=== PATIENT | female | born 1950 | race African-American/Black ===

== ENCOUNTER 2021-09-06 19:35 | Observation (INO) | payer MEDICARE ==
[2021-09-06] MEDS ORDERED: Ondansetron PF 4 MG/2 ML Vial ONE (20:53)
[2021-09-06 21:12] LABS: #Eosinphils 0.1 10x3/uL (0.0-0.5); #Monocytes 0.5 10x3/uL (0.0-1.1); #Neutrophils 2.3 10x3/uL (1.5-8.4); %Basophils 0.7 % (0.0-2.0); %Eosinophils 1.8 % (0.0-6.0); %Lymphocytes 34.4 % (18.0-47.0); %Monocytes 11.8 % (0.0-10.0); %Neutrophils 51.1 % (40.0-75.0); Hemoglobin 9.6 g/dL (12.0-15.5); Mean Corpuscular HGB CONC 32.3 g/dL (32.0-36.0); Mean Corpuscular Hemoglobin 30.6 pg (27.0-33.0); Mean Corpuscular Volume 94.6 fl (81.6-98.3); Mean Platelet Volume 11.1 fl (7.4-10.4); Platelet Count 167 10x3/uL (150-450); RBC Distribution Width 13.6 % (11.5-14.5); Red Blood Cell (RBC) Count 3.14 10x6/uL (3.90-5.03); White Blood Cell (WBC) Count 4.5 10x3/uL (3.5-10.5)
[2021-09-06 21:26] LABS: ALT (SGPT) 11 U/L (8-55); AST (SGOT) 18 U/L (5-34); Alkaline Phosphatase 55 U/L (40-110); Anion Gap 13 mmol/L (10-20); BUN (Urea Nitrogen) 29 mg/dL (9.8-20.1); Bilirubin, Total 0.5 mg/dL (0.2-1.2); Calc. Creatinine Clearance 0 mL/min (70-130); Calcium 9.5 mg/dL (7.8-10.44); Carbon Dioxide 28 mmol/L (23-31); Chloride 102 mmol/L (98-107); Globulin 2.9 g/dL (2.4-3.5); Glucose 99 mg/dL (83-110); Lipase 36 U/L (8-78); Potassium 3.9 mmol/L (3.5-5.1); Protein, Total 6.9 g/dL (5.8-8.1); Sodium 139 mmol/L (136-145)
[2021-09-06 21:27] LABS: Bilirubin Neg (Negative); Blood, Urine Negative (Negative); Clarity Clear (Clear); Glucose, Urine (Dipstick) Normal (Negative); Ketone, Urine Negative (Negative); Leukocyte Negative (Negative); Nitrite Negative (Negative); Protein, Urine (Dipstick) Negative (Neg-Trace); Specific Gravity, Urine 1.005 (1.002-1.036); Urobilinogen Normal mg/dL (Less than 2)
[2021-09-06 21:57] LABS: SARS-CoV-2 NAA Rapid Test Not Detected (NotDetected)
[2021-09-07] MEDS ORDERED: Dextrose 5% in Water 1,000 ML IV PRN (02:08)
[2021-09-07] MEDS ORDERED: HumaLOG 300 UNITS/3 ML VIAL SC PRN (02:08)
[2021-09-07] MEDS ORDERED: Dextrose 50% Abboject 50 ML SYRINGE SLOW IVP PRN (02:08)
[2021-09-07 02:13] VITALS: BMI 23.8
[2021-09-07] MEDS: 1/2 NS w/KCL 20 mEq 1,000 ML IV SCH ×2 (02:33→18:48)
[2021-09-07 04:15] LABS: #Eosinphils 0.1 10x3/uL (0.0-0.5); #Monocytes 0.6 10x3/uL (0.0-1.1); #Neutrophils 2.3 10x3/uL (1.5-8.4); %Basophils 0.7 % (0.0-2.0); %Lymphocytes 34.2 % (18.0-47.0); %Monocytes 12.3 % (0.0-10.0); %Neutrophils 50.6 % (40.0-75.0); Hemoglobin 9.3 g/dL (12.0-15.5); Mean Corpuscular Hemoglobin 30.4 pg (27.0-33.0); Mean Corpuscular Volume 95.1 fl (81.6-98.3); Mean Platelet Volume 10.9 fl (7.4-10.4); Platelet Count 161 10x3/uL (150-450); RBC Distribution Width 13.5 % (11.5-14.5); Red Blood Cell (RBC) Count 3.06 10x6/uL (3.90-5.03); White Blood Cell (WBC) Count 4.6 10x3/uL (3.5-10.5)
[2021-09-07 04:19] LABS: Anion Gap 13 mmol/L (10-20); BUN (Urea Nitrogen) 27 mg/dL (9.8-20.1); Calc. Creatinine Clearance 38 mL/min (70-130); Calcium 9.4 mg/dL (7.8-10.44); Carbon Dioxide 29 mmol/L (23-31); Chloride 103 mmol/L (98-107); Glucose 124 mg/dL (83-110); Magnesium 1.7 mg/dL (1.6-2.6); Potassium 4.1 mmol/L (3.5-5.1); Sodium 141 mmol/L (136-145)
[2021-09-07 04:21] LABS: Troponin I Less than 0.010 ng/mL (< 0.028)
[2021-09-07 04:35] LABS: Thyroid Stimulating Hormone 1.9554 uIU/mL (0.35-4.94)
[2021-09-07] MEDS: Enoxaparin Sodium 40 MG/0.4 ML SYRINGE SC SCH (09:53)
[2021-09-07] MEDS: Cyanocobalamin 1000 MCG/ML VIAL IM SCH (09:53)
[2021-09-07] MEDS ORDERED: Fleet Enema 133 ML BOT PR SCH (16:00)
[2021-09-07] MEDS ORDERED: Magnesium Citrate 300 ML BOT PO SCH (17:30)
[2021-09-07 17:56] LABS: Mean Corpuscular HGB CONC 32.1 g/dL (32.0-36.0); Mean Corpuscular Hemoglobin 30.4 pg (27.0-33.0); Mean Corpuscular Volume 94.8 fl (81.6-98.3); Mean Platelet Volume 10.7 fl (7.4-10.4); Platelet Count 162 10x3/uL (150-450); RBC Distribution Width 13.5 % (11.5-14.5); Red Blood Cell (RBC) Count 3.29 10x6/uL (3.90-5.03)
[2021-09-07] MEDS ORDERED: hydrALAZINE 20 MG/ML VIAL SLOW IVP SCH (21:15)
[2021-09-08] MEDS ORDERED: Ondansetron PF 4 MG/2 ML Vial IVP PRN (02:35)
[2021-09-08] MEDS ORDERED: cloNIDine 0.1 MG TAB PO SCH (03:00)
[2021-09-08] MEDS: 1/2 NS w/KCL 20 mEq 1,000 ML IV SCH (05:13)
[2021-09-08 06:21] LABS: Anion Gap 13 mmol/L (10-20); BUN (Urea Nitrogen) 19 mg/dL (9.8-20.1); Calc. Creatinine Clearance 46 mL/min (70-130); Carbon Dioxide 29 mmol/L (23-31); Chloride 105 mmol/L (98-107); Glucose 118 mg/dL (83-110); Magnesium 1.7 mg/dL (1.6-2.6); Potassium 3.7 mmol/L (3.5-5.1); Sodium 143 mmol/L (136-145)
[2021-09-08] MEDS ORDERED: Metamucil PACK PO SCH (09:00)
[2021-09-08] MEDS ORDERED: Polyethylene Glycol 3350 17 GM Packet PO SCH (09:00)
[2021-09-08] MEDS ORDERED: Pantoprazole 40 MG VIAL IVP SCH (09:00)
[2021-09-08] MEDS: Enoxaparin Sodium 40 MG/0.4 ML SYRINGE SC SCH (09:15)
[2021-09-08] MEDS: Cyanocobalamin 1000 MCG/ML VIAL IM SCH (09:15)
[2021-09-08] MEDS ORDERED: Acetaminophen 325 MG TAB PO PRN (12:35)
[2021-09-08 17:25] VITALS: BP 156/70; TEMP 99.3
== END 2021-09-08 18:37 | disposition home or self-care (01) ==
LOC: CSHERS 19:35 → CSHTELE 09-07 02:01
PROVIDERS: ADMIT Family Medicine; ATTEND Physician Assistant Medical
DX: R53.1 Weakness (principal); E53.8 Deficiency of other specified B group vitamins; E11.22 Type 2 diabetes mellitus with diabetic chronic kidney disease; I12.9 Hypertensive chronic kidney disease with stage 1 through stage 4 chronic kidney disease, or unspecified chronic kidney disease; N18.32 Chronic kidney disease, stage 3b; R09.02 Hypoxemia; I51.7 Cardiomegaly; Z79.4 Long term (current) use of insulin; Z79.899 Other long term (current) drug therapy; Z79.82 Long term (current) use of aspirin; Z20.822 Contact with and (suspected) exposure to COVID-19
CPT/HCPCS: 0240U; 71045; 74177; 80048 ×2; 80053; 81003; 82607; 82728; 82746; 82962 ×2; 83605; 83690; 83735 ×2; 83880; 84443; 84484 ×2; 85025 ×2; 85027; 85379; 93005 ×2; 93306; 94760 ×2; 96372 ×2; 96374; 96375 ×2; 96376; 99285; G0378 ×2; 36415; 36416; 93010; C9113; J0360; J1650; J2405; J3420; J3480

== ENCOUNTER 2021-09-20 13:09 | Inpatient (IN) | payer MEDICARE ==
[2021-09-20 15:31] VITALS: BMI 26.1
[2021-09-20] MEDS ORDERED: Ondansetron PF 4 MG/2 ML Vial IVP PRN (16:47)
[2021-09-20] MEDS ORDERED: Dextrose 5% in Water 1,000 ML IV PRN (16:47)
[2021-09-20] MEDS ORDERED: Dextrose 50% Abboject 50 ML SYRINGE SLOW IVP PRN (16:47)
[2021-09-20] MEDS ORDERED: Furosemide 20 MG/2 ML VIAL SLOW IVP SCH (17:00)
[2021-09-20] MEDS ORDERED: FLU VACC QS2021-22(65YR UP)/PF 240 MCG/0.7 ML SYRINGE IM ONE (18:15)
[2021-09-20] MEDS: metFORMIN 500 MG TAB PO SCH (18:45)
[2021-09-20] MEDS: Acetaminophen 325 MG TAB PO PRN ×2 (18:45→22:38)
[2021-09-20] MEDS: hydrALAZINE 20 MG/ML VIAL SLOW IVP PRN (18:45)
[2021-09-20] MEDS: Cefepime 1 GM in Sodium Chloride 0.9% 100 ML IVPB SCH (20:58)
[2021-09-20] MEDS: Metoprolol Tartrate 50 MG TAB PO SCH (20:59)
[2021-09-20] MEDS: Simvastatin 10 MG TAB PO SCH (20:59)
[2021-09-20] MEDS: Gabapentin 100 MG CAP PO SCH (20:59)
[2021-09-20] MEDS: Sucralfate 1 GM TAB PO SCH (21:00)
[2021-09-20] MEDS: hydrALAZINE 25 MG TAB PO SCH (21:00)
[2021-09-20] MEDS: Oxybutynin ER 5 MG TAB PO SCH (21:00)
[2021-09-20] MEDS: HumaLOG 300 UNITS/3 ML VIAL SC PRN (21:01)
[2021-09-21] MEDS ORDERED: Vancomycin HCl 500 MG in Sodium Chloride 0.9% 100 ML IVPB SCH (04:00)
[2021-09-21 04:43] LABS: #Eosinphils 0.1 10x3/uL (0.0-0.5); #Monocytes 0.7 10x3/uL (0.0-1.1); #Neutrophils 3.6 10x3/uL (1.5-8.4); %Basophils 0.7 % (0.0-2.0); %Eosinophils 1.6 % (0.0-6.0); %Lymphocytes 18.9 % (18.0-47.0); %Monocytes 13.3 % (0.0-10.0); %Neutrophils 65.1 % (40.0-75.0); Hemoglobin 8.9 g/dL (12.0-15.5); Mean Corpuscular HGB CONC 30.6 g/dL (32.0-36.0); Mean Platelet Volume 11.2 fl (7.4-10.4); Platelet Count 196 10x3/uL (150-450); Red Blood Cell (RBC) Count 2.97 10x6/uL (3.90-5.03); White Blood Cell (WBC) Count 5.6 10x3/uL (3.5-10.5)
[2021-09-21 05:00] LABS: Anion Gap 12 mmol/L (10-20); BUN (Urea Nitrogen) 29 mg/dL (9.8-20.1); Calc. Creatinine Clearance 44 mL/min (70-130); Calcium 9.4 mg/dL (7.8-10.44); Carbon Dioxide 30 mmol/L (23-31); Chloride 104 mmol/L (98-107); Glucose 72 mg/dL (83-110); Sodium 142 mmol/L (136-145)
[2021-09-21] MEDS: Furosemide 40 MG/4 ML VIAL SLOW IVP SCH ×2 (05:15→14:59)
[2021-09-21] MEDS: Acetaminophen 325 MG TAB PO PRN (05:15)
[2021-09-21] MEDS: Latanoprost 0.005% Ophth Soln 2.5 ml Bottle EA EYE SCH (10:00)
[2021-09-21] MEDS ORDERED: Cefepime 1 GM VIAL ONE (10:12)
[2021-09-21] MEDS: Sucralfate 1 GM TAB PO SCH ×2 (10:21→20:20)
[2021-09-21] MEDS: Metoprolol Tartrate 50 MG TAB PO SCH ×2 (10:21→20:20)
[2021-09-21] MEDS: hydrALAZINE 25 MG TAB PO SCH ×4 (10:22→20:59)
[2021-09-21] MEDS: Gabapentin 100 MG CAP PO SCH (10:23)
[2021-09-21] MEDS: metFORMIN 500 MG TAB PO SCH ×3 (10:23→19:43)
[2021-09-21] MEDS: Cyanocobalamin (Vitamin B-12) 1,000 MCG TAB PO SCH (10:23)
[2021-09-21] MEDS: Pioglitazone HCl 15 MG TAB PO SCH (10:23)
[2021-09-21] MEDS: Aspirin Chewable 81 MG TAB PO SCH (10:24)
[2021-09-21] MEDS: Amlodipine 10 MG TAB PO SCH (10:24)
[2021-09-21] MEDS: Cefepime 1 GM in Sodium Chloride 0.9% 100 ML IVPB SCH ×2 (10:24→20:58)
[2021-09-21] MEDS: Valsartan 80 MG TAB PO SCH (10:27)
[2021-09-21] MEDS: Glimepiride 2 MG TAB PO SCH (10:27)
[2021-09-21 16:02] LABS: Base Excess (BEa) 7.7 mEq/L (-2.0 to +3.0); CO2 Tension 58.4 mmHg (35.0-45.0); Calcium, Ionized (arterial) 1.21 mmol/L (1.12-1.30); Carboxyhemoglobin (COHb) 0.2 gm% (0.0-3.0); Hemoglobin (Hb) 9.5 g/dL (12.0-16.0); O2 Tension (PaO2), arterial 65.1 mmHg (> 70.0); Potassium - ABG Lab 3.8 mmol/L (3.70-5.30); Puncture Site RRA; pH, Arterial 7.38 (7.35-7.45)
[2021-09-21 16:03] LABS: Syphilis Antibody Nonreactive (Nonreactive); Syphilis Antibody Index 0.45 S/CO (<1.00 Non-Reactive)
[2021-09-21] MEDS ORDERED: methylPREDNISolone Sod Succ/PF 125 MG in Sodium Chloride 0.9% 250 ML 250 ML IVPB SCH (16:30)
[2021-09-21] MEDS ORDERED: methylPREDNISolone Sod Succ/PF 125 MG/2 ML VIAL IVP SCH (17:00)
[2021-09-21 17:23] LABS: Actual Bicarbonate (HCO3a) 32.5 mEq/L (22-28); Base Excess (BEa) 6.4 mEq/L (-2.0 to +3.0); Calcium, Ionized (arterial) 1.21 mmol/L (1.12-1.30); Carboxyhemoglobin (COHb) 0.3 gm% (0.0-3.0); Hemoglobin (Hb) 9.4 g/dL (12.0-16.0); O2 Tension (PaO2), arterial 71.3 mmHg (> 70.0); Potassium - ABG Lab 3.7 mmol/L (3.70-5.30); Puncture Site RRA; pH, Arterial 7.38 (7.35-7.45)
[2021-09-21] MEDS ORDERED: Lorazepam 2 MG/ML VIAL ONE (19:22)
[2021-09-21] MEDS ORDERED: Sterile Water 10 ML ONE (19:58)
[2021-09-21] MEDS ORDERED: Ziprasidone 20 MG VIAL IM SCH (20:00)
[2021-09-21] MEDS ORDERED: Lorazepam 2 MG/ML VIAL SLOW IVP SCH (20:00)
[2021-09-21] MEDS: Budesonide 0.5 MG/2 ML NEB NEB SCH (20:10)
[2021-09-21] MEDS: Simvastatin 10 MG TAB PO SCH (20:20)
[2021-09-21] MEDS: Oxybutynin ER 5 MG TAB PO SCH (20:20)
[2021-09-21] MEDS ORDERED: Sodium Chloride 0.9% 500 ML IVPB SCH (21:00)
[2021-09-21] MEDS ORDERED: Norepinephrine 8 MG/0.9% NS 250 ML IVPB SCH (21:30)
[2021-09-21] MEDS: Vancomycin HCl 500 MG in Sodium Chloride 0.9% 100 ML IVPB SCH (21:44)
[2021-09-22] MEDS ORDERED: Lorazepam 2 MG/ML VIAL SLOW IVP SCH (04:00)
[2021-09-22] MEDS ORDERED: methylPREDNISolone Sod Succ 40 MG VIAL IVP SCH ×2 (06:00→09:00)
[2021-09-22] MEDS: Furosemide 40 MG/4 ML VIAL SLOW IVP SCH (07:33)
[2021-09-22] MEDS: hydrALAZINE 20 MG/ML VIAL SLOW IVP PRN ×2 (07:33→16:14)
[2021-09-22] MEDS: metFORMIN 500 MG TAB PO SCH ×2 (08:41→16:12)
[2021-09-22] MEDS: Aspirin Chewable 81 MG TAB PO SCH (08:41)
[2021-09-22] MEDS: Glimepiride 2 MG TAB PO SCH (08:41)
[2021-09-22] MEDS: Amlodipine 10 MG TAB PO SCH (08:41)
[2021-09-22] MEDS: Cyanocobalamin (Vitamin B-12) 1,000 MCG TAB PO SCH (08:44)
[2021-09-22] MEDS: hydrALAZINE 25 MG TAB PO SCH ×3 (08:44→21:47)
[2021-09-22 08:45] LABS: Legionella Urinary Ag Negative (Negative); Strep pneumo Urine Ag NEGATIVE (NEGATIVE)
[2021-09-22] MEDS: Sucralfate 1 GM TAB PO SCH ×2 (08:45→21:48)
[2021-09-22] MEDS: Valsartan 80 MG TAB PO SCH (08:45)
[2021-09-22] MEDS: Metoprolol Tartrate 50 MG TAB PO SCH ×2 (08:45→21:47)
[2021-09-22] MEDS: Pioglitazone HCl 15 MG TAB PO SCH (08:45)
[2021-09-22] MEDS: HumaLOG 300 UNITS/3 ML VIAL SC PRN (09:22)
[2021-09-22] MEDS: Budesonide 0.5 MG/2 ML NEB NEB SCH ×2 (09:25→19:35)
[2021-09-22 09:48] LABS: #Monocytes 0.7 10x3/uL (0.0-1.1); #Neutrophils 6.1 10x3/uL (1.5-8.4); %Basophils 0.3 % (0.0-2.0); %Lymphocytes 11.9 % (18.0-47.0); %Neutrophils 78.2 % (40.0-75.0); Hemoglobin 10.2 g/dL (12.0-15.5); Mean Corpuscular Hemoglobin 29.8 pg (27.0-33.0); Mean Corpuscular Volume 96.2 fl (81.6-98.3); Mean Platelet Volume 10.6 fl (7.4-10.4); Platelet Count 232 10x3/uL (150-450); Red Blood Cell (RBC) Count 3.42 10x6/uL (3.90-5.03); White Blood Cell (WBC) Count 7.8 10x3/uL (3.5-10.5)
[2021-09-22 09:57] LABS: Phosphorus 4.7 mg/dL (2.3-4.7)
[2021-09-22] MEDS ORDERED: Labetalol HCl 100 MG/20 ML VIAL SLOW IVP PRN (10:01)
[2021-09-22 10:02] LABS: ALT (SGPT) 27 U/L (8-55); AST (SGOT) 20 U/L (5-34); Alkaline Phosphatase 59 U/L (40-110); Anion Gap 17 mmol/L (10-20); BUN (Urea Nitrogen) 35 mg/dL (9.8-20.1); Bilirubin, Total 0.8 mg/dL (0.2-1.2); Calc. Creatinine Clearance 39 mL/min (70-130); Calcium 9.9 mg/dL (7.8-10.44); Carbon Dioxide 28 mmol/L (23-31); Chloride 100 mmol/L (98-107); Globulin 3.7 g/dL (2.4-3.5); Glucose 250 mg/dL (83-110); Magnesium 1.4 mg/dL (1.6-2.6); Potassium 3.9 mmol/L (3.5-5.1); Protein, Total 7.7 g/dL (5.8-8.1); Sodium 141 mmol/L (136-145)
[2021-09-22] MEDS ORDERED: Pantoprazole 40 MG VIAL IVP SCH (11:00)
[2021-09-22 11:07] LABS: Actual Bicarbonate (HCO3v) 30 mEq/L (22-28); Base Excess 3.8 mEq/L (-2.0 to +3.0); Calcium, Ionized (venous) 1.15 mmol/L (1.16-1.32); Chloride (VBG) 98 mmol/L (98-106); Hemoglobin (Hb) 11.2 g/dL (11.7-16.1); Potassium (VBG) 3.82 mmol/L (3.70-5.30); Puncture Site Other Site; Sodium 139.8 mmol/L (133-146)
[2021-09-22] MEDS: Cefepime 1 GM in Sodium Chloride 0.9% 100 ML IVPB SCH ×2 (12:44→21:24)
[2021-09-22] MEDS: Magnesium 2 GM/50 ML 2 GM in Premix Bag 1 BAG IVPB SCH ×2 (12:45→14:09)
[2021-09-22 14:09] LABS: Actual Bicarbonate (HCO3v) 35 mEq/L (22-28); Base Excess 8.6 mEq/L (-2.0 to +3.0); Calcium, Ionized (venous) 1.17 mmol/L (1.16-1.32); Chloride (VBG) 100 mmol/L (98-106); Hemoglobin (Hb) 10.3 g/dL (11.7-16.1); Potassium (VBG) 3.55 mmol/L (3.70-5.30); Puncture Site Other Site; Sodium 140.7 mmol/L (133-146)
[2021-09-22] MEDS: Latanoprost 0.005% Ophth Soln 2.5 ml Bottle EA EYE SCH (14:24)
[2021-09-22] MEDS: Dextrose 10% in Water 1,000 ML IV SCH (15:37)
[2021-09-22] MEDS: Vancomycin HCl 500 MG in Sodium Chloride 0.9% 100 ML IVPB SCH (16:15)
[2021-09-22] MEDS ORDERED: HYDROmorphone 0.5 MG/0.5 ML SYRINGE SLOW IVP SCH (17:30)
[2021-09-22] MEDS ORDERED: Ziprasidone 20 MG VIAL IM SCH (20:15)
[2021-09-22] MEDS ORDERED: Sterile Water 10 ML ONE (20:36)
[2021-09-22] MEDS: Enoxaparin Sodium 40 MG/0.4 ML SYRINGE SC SCH (21:24)
[2021-09-22] MEDS: Simvastatin 10 MG TAB PO SCH (21:48)
[2021-09-22] MEDS: Oxybutynin ER 5 MG TAB PO SCH (21:48)
[2021-09-23] MEDS ORDERED: Lorazepam 2 MG/ML VIAL SLOW IVP SCH (02:15)
[2021-09-23 04:18] LABS: #Eosinphils 0.1 10x3/uL (0.0-0.5); #Monocytes 0.9 10x3/uL (0.0-1.1); #Neutrophils 5.7 10x3/uL (1.5-8.4); %Basophils 0.4 % (0.0-2.0); %Eosinophils 0.8 % (0.0-6.0); %Lymphocytes 11.8 % (18.0-47.0); %Monocytes 11.8 % (0.0-10.0); %Neutrophils 74.9 % (40.0-75.0); Hemoglobin 9.1 g/dL (12.0-15.5); Mean Corpuscular HGB CONC 31.6 g/dL (32.0-36.0); Mean Corpuscular Hemoglobin 30.2 pg (27.0-33.0); Mean Corpuscular Volume 95.7 fl (81.6-98.3); Mean Platelet Volume 10.8 fl (7.4-10.4); Platelet Count 197 10x3/uL (150-450); RBC Distribution Width 14.1 % (11.5-14.5); Red Blood Cell (RBC) Count 3.01 10x6/uL (3.90-5.03); White Blood Cell (WBC) Count 7.6 10x3/uL (3.5-10.5)
[2021-09-23 04:29] LABS: ALT (SGPT) 23 U/L (8-55); AST (SGOT) 24 U/L (5-34); Albumin 3.8 g/dL (3.4-4.8); Alkaline Phosphatase 52 U/L (40-110); Anion Gap 18 mmol/L (10-20); BUN (Urea Nitrogen) 32 mg/dL (9.8-20.1); Bilirubin, Total 0.8 mg/dL (0.2-1.2); Calc. Creatinine Clearance 44 mL/min (70-130); Calcium 9.6 mg/dL (7.8-10.44); Carbon Dioxide 28 mmol/L (23-31); Chloride 99 mmol/L (98-107); Globulin 3.5 g/dL (2.4-3.5); Glucose 239 mg/dL (83-110); Magnesium 2.1 mg/dL (1.6-2.6); Phosphorus 3.5 mg/dL (2.3-4.7); Potassium 3.6 mmol/L (3.5-5.1); Protein, Total 7.3 g/dL (5.8-8.1); Sodium 141 mmol/L (136-145)
[2021-09-23] MEDS: Acetaminophen 325 MG TAB PO PRN (04:45)
[2021-09-23] MEDS: HumaLOG 300 UNITS/3 ML VIAL SC PRN ×2 (04:52→20:58)
[2021-09-23] MEDS: Dextrose 10% in Water 1,000 ML IV SCH ×3 (05:36→19:39)
[2021-09-23] MEDS ORDERED: Dextrose 30 ML TUBE PO SCH (08:15)
[2021-09-23] MEDS: Budesonide 0.5 MG/2 ML NEB NEB SCH (08:44)
[2021-09-23 09:32] LABS: Vancomycin, Trough 13.8 ug/mL
[2021-09-23] MEDS: Aspirin Chewable 81 MG TAB PO SCH (10:27)
[2021-09-23] MEDS: hydrALAZINE 25 MG TAB PO SCH ×3 (10:27→19:32)
[2021-09-23] MEDS: Cyanocobalamin (Vitamin B-12) 1,000 MCG TAB PO SCH (10:28)
[2021-09-23] MEDS: Amlodipine 10 MG TAB PO SCH (10:28)
[2021-09-23] MEDS: Sucralfate 1 GM TAB PO SCH ×2 (10:28→19:33)
[2021-09-23] MEDS: Metoprolol Tartrate 50 MG TAB PO SCH ×2 (10:28→19:32)
[2021-09-23] MEDS: Valsartan 80 MG TAB PO SCH (10:46)
[2021-09-23] MEDS: Latanoprost 0.005% Ophth Soln 2.5 ml Bottle EA EYE SCH (10:47)
[2021-09-23] MEDS: Vancomycin HCl 500 MG in Sodium Chloride 0.9% 100 ML IVPB SCH (15:33)
[2021-09-23] MEDS: Pantoprazole 40 MG VIAL IVP SCH (15:33)
[2021-09-23] MEDS: Cefepime 1 GM in Sodium Chloride 0.9% 100 ML IVPB SCH ×2 (15:34→19:31)
[2021-09-23] MEDS: Bisacodyl 5 MG TAB PO PRN (17:34)
[2021-09-23] MEDS: Pioglitazone HCl 15 MG TAB PO SCH (19:16)
[2021-09-23] MEDS: Glimepiride 2 MG TAB PO SCH (19:16)
[2021-09-23] MEDS: metFORMIN 500 MG TAB PO SCH (19:16)
[2021-09-23] MEDS ORDERED: Dextrose 50% Abboject 50 ML SYRINGE SLOW IVP PRN (19:17)
[2021-09-23] MEDS ORDERED: Dextrose 5% in Water 1,000 ML IV PRN (19:17)
[2021-09-23] MEDS: Enoxaparin Sodium 40 MG/0.4 ML SYRINGE SC SCH (19:32)
[2021-09-23] MEDS: Simvastatin 10 MG TAB PO SCH (19:43)
[2021-09-23] MEDS: Oxybutynin ER 5 MG TAB PO SCH (19:43)
[2021-09-24] MEDS ORDERED: Melatonin 3 MG TAB PO SCH (00:15)
[2021-09-24 03:37] LABS: #Eosinphils 0.2 10x3/uL (0.0-0.5); #Monocytes 0.7 10x3/uL (0.0-1.1); #Neutrophils 3.8 10x3/uL (1.5-8.4); %Basophils 0.7 % (0.0-2.0); %Eosinophils 3.1 % (0.0-6.0); %Lymphocytes 16.8 % (18.0-47.0); %Monocytes 12.9 % (0.0-10.0); %Neutrophils 66.2 % (40.0-75.0); Mean Corpuscular Hemoglobin 30.2 pg (27.0-33.0); Mean Corpuscular Volume 97.4 fl (81.6-98.3); Platelet Count 185 10x3/uL (150-450); RBC Distribution Width 13.9 % (11.5-14.5); Red Blood Cell (RBC) Count 2.65 10x6/uL (3.90-5.03); White Blood Cell (WBC) Count 5.7 10x3/uL (3.5-10.5)
[2021-09-24 03:58] LABS: ALT (SGPT) 21 U/L (8-55); AST (SGOT) 28 U/L (5-34); Albumin 3.4 g/dL (3.4-4.8); Alkaline Phosphatase 46 U/L (40-110); Anion Gap 14 mmol/L (10-20); BUN (Urea Nitrogen) 27 mg/dL (9.8-20.1); Bilirubin, Total 0.8 mg/dL (0.2-1.2); Calc. Creatinine Clearance 54 mL/min (70-130); Carbon Dioxide 29 mmol/L (23-31); Chloride 98 mmol/L (98-107); Glucose 138 mg/dL (83-110); Magnesium 1.8 mg/dL (1.6-2.6); Phosphorus 2.9 mg/dL (2.3-4.7); Potassium 3.3 mmol/L (3.5-5.1); Protein, Total 6.4 g/dL (5.8-8.1); Sodium 138 mmol/L (136-145)
[2021-09-24] MEDS: Dextrose 10% in Water 1,000 ML IV SCH (04:43)
[2021-09-24] MEDS ORDERED: Potassium Chloride 20 MEQ TAB PO SCH (08:00)
[2021-09-24] MEDS: Amlodipine 10 MG TAB PO SCH (08:04)
[2021-09-24] MEDS: Aspirin Chewable 81 MG TAB PO SCH (08:05)
[2021-09-24] MEDS: Cefepime 1 GM in Sodium Chloride 0.9% 100 ML IVPB SCH ×2 (08:06→22:00)
[2021-09-24] MEDS: Cyanocobalamin (Vitamin B-12) 1,000 MCG TAB PO SCH (08:07)
[2021-09-24] MEDS: Metoprolol Tartrate 50 MG TAB PO SCH ×2 (08:09→09:55)
[2021-09-24] MEDS: Sucralfate 1 GM TAB PO SCH ×2 (08:10→22:02)
[2021-09-24] MEDS: Pantoprazole 40 MG VIAL IVP SCH (08:10)
[2021-09-24] MEDS: hydrALAZINE 25 MG TAB PO SCH ×3 (08:34→22:03)
[2021-09-24] MEDS: Valsartan 80 MG TAB PO SCH (08:35)
[2021-09-24] MEDS: Latanoprost 0.005% Ophth Soln 2.5 ml Bottle EA EYE SCH (08:44)
[2021-09-24] MEDS: Vancomycin HCl 500 MG in Sodium Chloride 0.9% 100 ML IVPB SCH (08:46)
[2021-09-24] MEDS: HumaLOG 300 UNITS/3 ML VIAL SC PRN ×3 (08:48→22:04)
[2021-09-24] MEDS: Bisacodyl 5 MG TAB PO PRN (10:14)
[2021-09-24] MEDS: Simvastatin 10 MG TAB PO SCH (22:00)
[2021-09-24] MEDS: Enoxaparin Sodium 40 MG/0.4 ML SYRINGE SC SCH (22:01)
[2021-09-24] MEDS: Oxybutynin ER 5 MG TAB PO SCH (22:02)
[2021-09-24 23:37] LABS: Mycoplasma pneumoniae IgG AB 671 U/mL (0-99); Mycoplasma pneumoniae IgM AB Less than 770 U/mL (0-769)
[2021-09-25] MEDS: Vancomycin HCl 500 MG in Sodium Chloride 0.9% 100 ML IVPB SCH ×2 (03:44→21:54)
[2021-09-25 05:22] LABS: #Eosinphils 0.2 10x3/uL (0.0-0.5); #Monocytes 0.6 10x3/uL (0.0-1.1); #Neutrophils 2.2 10x3/uL (1.5-8.4); %Basophils 0.7 % (0.0-2.0); %Eosinophils 3.7 % (0.0-6.0); %Lymphocytes 25.9 % (18.0-47.0); %Monocytes 14.8 % (0.0-10.0); %Neutrophils 54.7 % (40.0-75.0); Hemoglobin 8.6 g/dL (12.0-15.5); Mean Corpuscular HGB CONC 31.4 g/dL (32.0-36.0); Mean Corpuscular Volume 95.5 fl (81.6-98.3); Mean Platelet Volume 11.3 fl (7.4-10.4); Platelet Count 196 10x3/uL (150-450); RBC Distribution Width 13.8 % (11.5-14.5); Red Blood Cell (RBC) Count 2.87 10x6/uL (3.90-5.03); White Blood Cell (WBC) Count 4.1 10x3/uL (3.5-10.5)
[2021-09-25 05:28] LABS: ALT (SGPT) 21 U/L (8-55); AST (SGOT) 27 U/L (5-34); Albumin 3.3 g/dL (3.4-4.8); Alkaline Phosphatase 44 U/L (40-110); Anion Gap 11 mmol/L (10-20); BUN (Urea Nitrogen) 23 mg/dL (9.8-20.1); Bilirubin, Total 0.8 mg/dL (0.2-1.2); Calc. Creatinine Clearance 49 mL/min (70-130); Calcium 9.1 mg/dL (7.8-10.44); Carbon Dioxide 30 mmol/L (23-31); Chloride 99 mmol/L (98-107); Globulin 2.9 g/dL (2.4-3.5); Glucose 180 mg/dL (83-110); Magnesium 1.8 mg/dL (1.6-2.6); Phosphorus 2.7 mg/dL (2.3-4.7); Potassium 3.8 mmol/L (3.5-5.1); Protein, Total 6.2 g/dL (5.8-8.1); Sodium 136 mmol/L (136-145)
[2021-09-25] MEDS: Sucralfate 1 GM TAB PO SCH ×2 (09:32→21:05)
[2021-09-25] MEDS: Cyanocobalamin (Vitamin B-12) 1,000 MCG TAB PO SCH (09:32)
[2021-09-25] MEDS: Metoprolol Tartrate 50 MG TAB PO SCH ×2 (09:32→21:04)
[2021-09-25] MEDS: Amlodipine 10 MG TAB PO SCH (09:33)
[2021-09-25] MEDS: Valsartan 80 MG TAB PO SCH (09:33)
[2021-09-25] MEDS: Aspirin Chewable 81 MG TAB PO SCH (09:33)
[2021-09-25] MEDS: Latanoprost 0.005% Ophth Soln 2.5 ml Bottle EA EYE SCH (09:33)
[2021-09-25] MEDS: hydrALAZINE 25 MG TAB PO SCH ×3 (09:33→21:04)
[2021-09-25] MEDS: Pantoprazole 40 MG VIAL IVP SCH (09:33)
[2021-09-25] MEDS: Cefepime 1 GM in Sodium Chloride 0.9% 100 ML IVPB SCH ×2 (09:37→21:03)
[2021-09-25] MEDS ORDERED: hydrOXYzine 25 MG TAB PO PRN (10:32)
[2021-09-25] MEDS: hydrOXYzine 25 MG TAB PO SCH ×4 (12:15→21:05)
[2021-09-25] MEDS: HumaLOG 300 UNITS/3 ML VIAL SC PRN ×3 (13:03→21:16)
[2021-09-25] MEDS: Enoxaparin Sodium 40 MG/0.4 ML SYRINGE SC SCH (21:02)
[2021-09-25] MEDS: Simvastatin 10 MG TAB PO SCH (21:04)
[2021-09-25] MEDS: Acetaminophen 325 MG TAB PO PRN (21:05)
[2021-09-25] MEDS: Oxybutynin ER 5 MG TAB PO SCH (21:05)
[2021-09-25 21:30] LABS: Vancomycin, Trough 8.3 ug/mL
[2021-09-26] MEDS: Vancomycin HCl 500 MG in Sodium Chloride 0.9% 100 ML IVPB SCH ×3 (00:03→22:49)
[2021-09-26 05:31] LABS: #Eosinphils 0.2 10x3/uL (0.0-0.5); #Monocytes 0.7 10x3/uL (0.0-1.1); #Neutrophils 2.5 10x3/uL (1.5-8.4); %Basophils 0.8 % (0.0-2.0); %Eosinophils 3.3 % (0.0-6.0); %Lymphocytes 28.5 % (18.0-47.0); %Monocytes 14.2 % (0.0-10.0); Hemoglobin 8.8 g/dL (12.0-15.5); Mean Corpuscular HGB CONC 31.8 g/dL (32.0-36.0); Mean Corpuscular Hemoglobin 30.9 pg (27.0-33.0); Mean Corpuscular Volume 97.2 fl (81.6-98.3); Mean Platelet Volume 11.1 fl (7.4-10.4); Platelet Count 176 10x3/uL (150-450); RBC Distribution Width 13.6 % (11.5-14.5); Red Blood Cell (RBC) Count 2.85 10x6/uL (3.90-5.03); White Blood Cell (WBC) Count 4.8 10x3/uL (3.5-10.5)
[2021-09-26 05:38] LABS: ALT (SGPT) 18 U/L (8-55); AST (SGOT) 22 U/L (5-34); Albumin 3.3 g/dL (3.4-4.8); Alkaline Phosphatase 48 U/L (40-110); Anion Gap 15 mmol/L (10-20); BUN (Urea Nitrogen) 23 mg/dL (9.8-20.1); Bilirubin, Total 0.8 mg/dL (0.2-1.2); Calc. Creatinine Clearance 44 mL/min (70-130); Calcium 9.2 mg/dL (7.8-10.44); Carbon Dioxide 26 mmol/L (23-31); Chloride 102 mmol/L (98-107); Glucose 129 mg/dL (83-110); Magnesium 1.9 mg/dL (1.6-2.6); Phosphorus 3.1 mg/dL (2.3-4.7); Potassium 3.9 mmol/L (3.5-5.1); Protein, Total 6.3 g/dL (5.8-8.1); Sodium 139 mmol/L (136-145)
[2021-09-26] MEDS: hydrALAZINE 25 MG TAB PO SCH ×3 (08:30→21:33)
[2021-09-26] MEDS: Cyanocobalamin (Vitamin B-12) 1,000 MCG TAB PO SCH (08:30)
[2021-09-26] MEDS: Pantoprazole 40 MG VIAL IVP SCH (08:32)
[2021-09-26] MEDS: Cefepime 1 GM in Sodium Chloride 0.9% 100 ML IVPB SCH (08:32)
[2021-09-26] MEDS: Metoprolol Tartrate 50 MG TAB PO SCH ×2 (08:32→21:34)
[2021-09-26] MEDS: Aspirin Chewable 81 MG TAB PO SCH (08:32)
[2021-09-26] MEDS: Amlodipine 10 MG TAB PO SCH (08:32)
[2021-09-26] MEDS: hydrOXYzine 25 MG TAB PO SCH ×4 (08:32→21:34)
[2021-09-26] MEDS: Sucralfate 1 GM TAB PO SCH ×2 (08:37→21:34)
[2021-09-26] MEDS: Valsartan 80 MG TAB PO SCH (08:37)
[2021-09-26] MEDS: Latanoprost 0.005% Ophth Soln 2.5 ml Bottle EA EYE SCH (08:38)
[2021-09-26 12:06] LABS: HBSAg Index 0.28 S/CO (0-0.99); HIV (1/2) Antibody/Antigen Non-Reactive (NonReactive); Hep B Surf Ag Non-Reactive S/CO (NonReactive); Hep C IgG Ab Non-Reactive (NonReactive); Hep C Index 0.12 S/CO (0-0.79)
[2021-09-26 15:11] LABS: Bilirubin Neg (Negative); Blood, Urine Negative (Negative); Clarity Clear (Clear); Glucose, Urine (Dipstick) 100 mg/dL (Negative); Ketone, Urine Negative (Negative); Leukocyte Negative (Negative); Nitrite Negative (Negative); Protein, Urine (Dipstick) 15 mg/dl (Neg-Trace); Urobilinogen Normal mg/dL (Less than 2)
[2021-09-26 15:13] LABS: Urine Culture Reflex No No
[2021-09-26 15:18] LABS: Bacteria/HPF Rare-Few HPF (None Seen); RBC/HPF 0-3 HPF (0-3); Squamous Epithelial None Seen HPF (0-3); WBC/HPF 0-3 HPF (0-3)
[2021-09-26] MEDS: Oxybutynin ER 5 MG TAB PO SCH (21:34)
[2021-09-26] MEDS: Simvastatin 10 MG TAB PO SCH (21:34)
[2021-09-26] MEDS: Enoxaparin Sodium 40 MG/0.4 ML SYRINGE SC SCH (21:35)
[2021-09-26] MEDS: Cefepime 2 GM in Sodium Chloride 0.9% 100 ML IVPB SCH (21:35)
[2021-09-27 05:25] LABS: ALT (SGPT) 17 U/L (8-55); AST (SGOT) 18 U/L (5-34); Albumin 3.3 g/dL (3.4-4.8); Alkaline Phosphatase 45 U/L (40-110); Anion Gap 10 mmol/L (10-20); BUN (Urea Nitrogen) 21 mg/dL (9.8-20.1); Bilirubin, Total 0.7 mg/dL (0.2-1.2); Calc. Creatinine Clearance 46 mL/min (70-130); Calcium 8.9 mg/dL (7.8-10.44); Carbon Dioxide 31 mmol/L (23-31); Chloride 101 mmol/L (98-107); Globulin 2.9 g/dL (2.4-3.5); Glucose 240 mg/dL (83-110); Magnesium 1.8 mg/dL (1.6-2.6); Phosphorus 3.1 mg/dL (2.3-4.7); Protein, Total 6.2 g/dL (5.8-8.1); Sodium 138 mmol/L (136-145)
[2021-09-27] MEDS: Acetaminophen 325 MG TAB PO PRN (06:07)
[2021-09-27 06:39] LABS: Hemoglobin 8.4 g/dL (12.0-15.5); Mean Corpuscular HGB CONC 31.7 g/dL (32.0-36.0); Mean Corpuscular Hemoglobin 30.4 pg (27.0-33.0); Mean Platelet Volume 11.2 fl (7.4-10.4); Platelet Count 182 10x3/uL (150-450); RBC Distribution Width 13.7 % (11.5-14.5); Red Blood Cell (RBC) Count 2.76 10x6/uL (3.90-5.03); White Blood Cell (WBC) Count 4.2 10x3/uL (3.5-10.5)
[2021-09-27 07:43] LABS: MDiff Complete? YES
[2021-09-27 07:46] LABS: Eosinophils 1 % (0-10); Lymphocytes 33 % (21-51); Monocytes 8 % (0-10); Neutrophil 57 % (42-75)
[2021-09-27 07:47] LABS: Platelet Morphology Comment Appears Adequate; RBC Morphology Normal
[2021-09-27] MEDS ORDERED: Pantoprazole 40 MG VIAL ONE (09:48)
[2021-09-27] MEDS: hydrOXYzine 25 MG TAB PO SCH ×4 (09:59→21:20)
[2021-09-27] MEDS: Pantoprazole 40 MG VIAL IVP SCH (09:59)
[2021-09-27] MEDS: hydrALAZINE 25 MG TAB PO SCH ×3 (09:59→21:19)
[2021-09-27] MEDS: Sucralfate 1 GM TAB PO SCH ×2 (09:59→22:00)
[2021-09-27] MEDS: Amlodipine 10 MG TAB PO SCH (09:59)
[2021-09-27] MEDS: Cyanocobalamin (Vitamin B-12) 1,000 MCG TAB PO SCH (10:00)
[2021-09-27] MEDS: Pioglitazone HCl 15 MG TAB PO SCH (10:00)
[2021-09-27] MEDS: Aspirin Chewable 81 MG TAB PO SCH (10:00)
[2021-09-27] MEDS: Valsartan 80 MG TAB PO SCH (10:00)
[2021-09-27] MEDS: Metoprolol Tartrate 50 MG TAB PO SCH ×2 (10:00→21:20)
[2021-09-27] MEDS: Cefepime 2 GM in Sodium Chloride 0.9% 100 ML IVPB SCH ×2 (10:01→21:19)
[2021-09-27] MEDS: Latanoprost 0.005% Ophth Soln 2.5 ml Bottle EA EYE SCH (10:01)
[2021-09-27] MEDS: Vancomycin HCl 500 MG in Sodium Chloride 0.9% 100 ML IVPB SCH ×2 (10:01→21:19)
[2021-09-27] MEDS: Glimepiride 2 MG TAB PO SCH (10:02)
[2021-09-27 10:03] LABS: Vancomycin, Trough 11.7 ug/mL
[2021-09-27] MEDS: metFORMIN 500 MG TAB PO SCH (18:45)
[2021-09-27] MEDS: Enoxaparin Sodium 40 MG/0.4 ML SYRINGE SC SCH (21:19)
[2021-09-27] MEDS: Simvastatin 10 MG TAB PO SCH (21:20)
[2021-09-27] MEDS: Oxybutynin ER 5 MG TAB PO SCH (21:20)
[2021-09-28 05:33] LABS: #Basophils 0.1 10x3/uL (0.0-0.2); #Eosinphils 0.1 10x3/uL (0.0-0.5); #Monocytes 0.7 10x3/uL (0.0-1.1); %Basophils 1.3 % (0.0-2.0); %Eosinophils 3.1 % (0.0-6.0); %Lymphocytes 29.3 % (18.0-47.0); %Monocytes 16.8 % (0.0-10.0); Hemoglobin 8.2 g/dL (12.0-15.5); Mean Corpuscular HGB CONC 31.3 g/dL (32.0-36.0); Mean Corpuscular Hemoglobin 30.1 pg (27.0-33.0); Mean Corpuscular Volume 96.3 fl (81.6-98.3); Mean Platelet Volume 11.2 fl (7.4-10.4); Platelet Count 189 10x3/uL (150-450); RBC Distribution Width 13.6 % (11.5-14.5); Red Blood Cell (RBC) Count 2.72 10x6/uL (3.90-5.03); White Blood Cell (WBC) Count 3.9 10x3/uL (3.5-10.5)
[2021-09-28 05:35] LABS: ALT (SGPT) 18 U/L (8-55); AST (SGOT) 19 U/L (5-34); Albumin 3.2 g/dL (3.4-4.8); Alkaline Phosphatase 38 U/L (40-110); Anion Gap 9 mmol/L (10-20); BUN (Urea Nitrogen) 20 mg/dL (9.8-20.1); Bilirubin, Total 0.7 mg/dL (0.2-1.2); Calc. Creatinine Clearance 52 mL/min (70-130); Calcium 8.7 mg/dL (7.8-10.44); Carbon Dioxide 30 mmol/L (23-31); Chloride 102 mmol/L (98-107); Globulin 2.5 g/dL (2.4-3.5); Glucose 151 mg/dL (83-110); Magnesium 1.8 mg/dL (1.6-2.6); Phosphorus 3.1 mg/dL (2.3-4.7); Potassium 4.1 mmol/L (3.5-5.1); Protein, Total 5.7 g/dL (5.8-8.1); Sodium 137 mmol/L (136-145)
[2021-09-28] MEDS: Sucralfate 1 GM TAB PO SCH ×2 (10:28→20:35)
[2021-09-28] MEDS: hydrALAZINE 25 MG TAB PO SCH ×3 (10:28→20:43)
[2021-09-28] MEDS: Aspirin Chewable 81 MG TAB PO SCH (10:29)
[2021-09-28] MEDS: Metoprolol Tartrate 50 MG TAB PO SCH ×2 (10:29→20:35)
[2021-09-28] MEDS: Amlodipine 10 MG TAB PO SCH (10:29)
[2021-09-28] MEDS: Pioglitazone HCl 15 MG TAB PO SCH (10:29)
[2021-09-28] MEDS: metFORMIN 500 MG TAB PO SCH ×2 (10:29→17:00)
[2021-09-28] MEDS: Latanoprost 0.005% Ophth Soln 2.5 ml Bottle EA EYE SCH (10:30)
[2021-09-28] MEDS: Pantoprazole 40 MG VIAL IVP SCH (10:30)
[2021-09-28] MEDS: Valsartan 80 MG TAB PO SCH (10:30)
[2021-09-28] MEDS: Vancomycin HCl 500 MG in Sodium Chloride 0.9% 100 ML IVPB SCH ×2 (10:30→20:43)
[2021-09-28] MEDS: Cyanocobalamin (Vitamin B-12) 1,000 MCG TAB PO SCH (10:30)
[2021-09-28] MEDS: Glimepiride 2 MG TAB PO SCH (10:31)
[2021-09-28] MEDS: hydrOXYzine 25 MG TAB PO SCH ×4 (10:33→20:34)
[2021-09-28] MEDS: Oxybutynin ER 5 MG TAB PO SCH (20:35)
[2021-09-28] MEDS: Simvastatin 10 MG TAB PO SCH (20:35)
[2021-09-28] MEDS: Enoxaparin Sodium 40 MG/0.4 ML SYRINGE SC SCH (20:43)
[2021-09-28 20:45] VITALS: BP 142/65; TEMP 97.7
[2021-09-28] MEDS ORDERED: Cefepime 2 GM in Sodium Chloride 0.9% 100 ML IVPB SCH (21:00)
== END 2021-09-28 20:55 | disposition home or self-care (01) | DRG 177 ==
LOC: CSHTELE 13:09 → CSHIMCU 09-21 19:15 → CSHTELE 09-24 13:10
PROVIDERS: ADMIT Family Medicine; ATTEND Family Medicine
PROC: 5A09357 Assistance with Respiratory Ventilation, Less than 24 Consecutive Hours, Continuous Positive Airway Pressure (ICD-10-PCS; principal; 2021-09-21)
DX: J69.0 Pneumonitis due to inhalation of food and vomit (principal); J96.01 Acute respiratory failure with hypoxia; G93.41 Metabolic encephalopathy; I50.31 Acute diastolic (congestive) heart failure; I13.0 Hypertensive heart and chronic kidney disease with heart failure and stage 1 through stage 4 chronic kidney disease, or unspecified chronic kidney disease; N17.9 Acute kidney failure, unspecified; E78.5 Hyperlipidemia, unspecified; E11.40 Type 2 diabetes mellitus with diabetic neuropathy, unspecified; J15.212 Pneumonia due to Methicillin resistant Staphylococcus aureus; E11.649 Type 2 diabetes mellitus with hypoglycemia without coma; D64.9 Anemia, unspecified; E11.22 Type 2 diabetes mellitus with diabetic chronic kidney disease; N18.32 Chronic kidney disease, stage 3b; E53.8 Deficiency of other specified B group vitamins; Z79.82 Long term (current) use of aspirin; Z79.84 Long term (current) use of oral hypoglycemic drugs; Z79.899 Other long term (current) drug therapy; Z98.890 Other specified postprocedural states; Z79.4 Long term (current) use of insulin
CPT/HCPCS: 36415; 36416; 36600; 70450; 71045; 76770; 80048; 80053; 80202; 81001; 82140; 82607; 82805; 83735; 84100; 85025; 86140; 86780; 86803; 87040; 87081; 87340; 87389; 87449; 87899; 94640; 94660; 94760; C9113; J0360; J0692; J1170; J1610; J1650; J1815; J1940; J2060; J2930; J3370; J3475; J3486; J3490; J7030; J7070; J7620; J7626

== ENCOUNTER → 2021-10-02 | Emergency (ER) | payer MEDICARE ==
[~2021-10-02] MED LIST: Aspirin 325 MG TAB ONE
[2021-10-02 07:54] LABS: #Eosinphils 0.1 10x3/uL (0.0-0.5); #Monocytes 0.8 10x3/uL (0.0-1.1); #Neutrophils 3.3 10x3/uL (1.5-8.4); %Basophils 0.7 % (0.0-2.0); %Lymphocytes 23.1 % (18.0-47.0); %Neutrophils 59.5 % (40.0-75.0); Hemoglobin 8.2 g/dL (12.0-15.5); Mean Corpuscular HGB CONC 31.3 g/dL (32.0-36.0); Mean Corpuscular Hemoglobin 30.1 pg (27.0-33.0); Mean Corpuscular Volume 96.3 fl (81.6-98.3); Mean Platelet Volume 10.8 fl (7.4-10.4); Platelet Count 213 10x3/uL (150-450); RBC Distribution Width 13.9 % (11.5-14.5); Red Blood Cell (RBC) Count 2.72 10x6/uL (3.90-5.03); White Blood Cell (WBC) Count 5.5 10x3/uL (3.5-10.5)
[2021-10-02 08:10] LABS: ALT (SGPT) 25 U/L (8-55); AST (SGOT) 21 U/L (5-34); Albumin 3.8 g/dL (3.4-4.8); Alkaline Phosphatase 51 U/L (40-110); Anion Gap 10 mmol/L (10-20); BUN (Urea Nitrogen) 24 mg/dL (9.8-20.1); Bilirubin, Total 0.6 mg/dL (0.2-1.2); Calc. Creatinine Clearance 0 mL/min (70-130); Calcium 9.4 mg/dL (7.8-10.44); Carbon Dioxide 30 mmol/L (23-31); Chloride 102 mmol/L (98-107); Globulin 2.6 g/dL (2.4-3.5); Glucose 165 mg/dL (83-110); Lipase 15 U/L (8-78); Potassium 4.3 mmol/L (3.5-5.1); Protein, Total 6.4 g/dL (5.8-8.1); Sodium 138 mmol/L (136-145)
[2021-10-02 13:41] LABS: SARS-CoV-2 NAA Rapid Test Not Detected (NotDetected)
== END ==
LOC: CSHERS 07:17
DX: J96.91 Respiratory failure, unspecified with hypoxia (principal); Z20.822 Contact with and (suspected) exposure to COVID-19; E11.9 Type 2 diabetes mellitus without complications; I10 Essential (primary) hypertension; K21.9 Gastro-esophageal reflux disease without esophagitis
CPT/HCPCS: 71045; 80053; 83690; 83880; 84484; 85025; 93005; 99285; U0002